=== PATIENT | female | born 1970 | race Two or more races ===

== ENCOUNTER 2018-07-06 22:26 | Emergency (ER) | payer OTHER ==
[~2018-07-06] VITALS: Ht 157.5 cm; Wt 89.8 kg
--- NOTE | 2018-07-06 22:52 | NUR ---
JUVENTINO C/O "PRESSURE ON MY BRAIN AND BURNING" X 2 DAYS, HIGH BP X 3 DAYS. PATIENT ALSO C/O NONRADIATING SUBSTERNAL CP X 1 DAY, DENIES SOB. PLACED ON THE MONITOR. KEPT COMFORTABLE. WILL MONITOR. WAITING FOR MD CUNNINGHAM.
[2018-07-06] MEDS ORDERED: hydrALAZINE HCL IV 20 MG VIAL IV ONE (23:00)
[2018-07-06] MEDS ORDERED: hydrALAZINE HCL IV 20 MG VIAL ONE (23:05)
[2018-07-06 23:07] LABS: BASOPHILS % (AUTO) 0.4 % (0.0-2.0); EOSINOPHILS % (AUTO) 3.8 % (0.0-6.0); HEMATOCRIT 37 % (33-45); HEMOGLOBIN 12.8 g/dL (11.5-14.8); LYMPHOCYTES # (AUTO) 3.3 /CMM (0.8-4.8); LYMPHOCYTES % (AUTO) 36.6 % (20.0-44.0); MEAN CORPUSCULAR HGB CONC 35 g/dl (31.0-36.0); MEAN CORPUSCULAR VOLUME 83 fL (82-100); MONOCYTES # (AUTO) 0.6 /CMM (0.1-1.30); MONOCYTES % (AUTO) 6.8 % (2.0-12.0); NEUTROPHILS # (AUTO) 4.7 /CMM (1.8-8.9); NEUTROPHILS % (AUTO) 52.4 % (43.0-81.0); PLATELET COUNT (AUTO) 334 /CMM (150-450); RED BLOOD CELL COUNT(AUTO) 4.46 MIL/uL (4.0-5.2); WHITE BLOOD COUNT (AUTO) 8.9 K/uL (4.3-11.0)
--- NOTE | 2018-07-06 23:09 | NUR ---
CLIENT REPRESENTATIVE AT BEDSIDE.
[2018-07-06 23:14] LABS: CALCIUM, SERUM 8.5 mg/dL (8.5-10.1); CARBON DIOXIDE 31 mmol/L (21-32); CHLORIDE 102 mmol/L (98-107); CREATININE 0.9 mg/dL (0.6-1.3); GLUCOSE 149 mg/dL (74-106); POTASSIUM 3.6 mmol/L (3.5-5.1); SODIUM SERUM 139 mmol/L (136-145); UREA NITROGEN, BLOOD 19 mg/dL (7-18)
--- NOTE | 2018-07-06 23:35 | NUR ---
ENDORSED TO KATHY FOR FARZANA.
--- NOTE | 2018-07-07 00:33 | NUR ---
CALLED MARISOL FOR READ.
[2018-07-07 00:43] VITALS: BP 125/84
[2018-07-07] MEDS ORDERED: ACETAMINOPHEN ES 500 MG TABLET PO ONE (01:00)
[2018-07-07] MEDS ORDERED: ACETAMINOPHEN ES 500 MG TABLET ONE (01:01)
--- NOTE | 2018-07-07 01:12 | NUR ---
IV removed. Catheter intact and site benign. Pressure and 4x4 applied to site. No bleeding noted.Patient discharged to home in stable condition. Written and verbal after care instructions given. Patient verbalizes understanding of instruction.
== END 2018-07-07 01:14 | disposition home or self-care (01) ==
LOC: ER 22:28
DX: I10 Essential (primary) hypertension (principal); R51 Headache; Z60.2 Problems related to living alone
CPT/HCPCS: 36415; 70450; 71045; 80048; 84484; 85025; 93005; 96374; 99284; J0360